=== PATIENT | male | born 1955 | race African-American/Black ===

== ENCOUNTER 2016-12-10 20:56 | Inpatient (IN) | payer OTHER ==
[~2016-12-10] VITALS: Ht 180.3 cm; Wt 104.7 kg
[~2016-12-10 20:56] MED LIST: AUGMENTIN875 MG PO; COUMADIN5 MG PO; LISINOPRIL20 MG PO
[2016-12-10] MEDS ORDERED: ASPIR 8181 M1 PO (22:00)
[2016-12-10] MEDS ORDERED: VITAMIN D3 PO (22:01)
[2016-12-10 22:04] LABS: HEMATOCRIT 40.2 % (38.0-50.0); MCH 28.8 PG (29.0-34.0); MCHC 34.3 G/DL (30.0-36.0); MCV 83.9 FL (86-99); MEAN PLAT.VOLUME 10.7 uM^3 (9.0-12.4); PLATELET COUNT 210 K/uL (156-360); RBC DIS.WIDTH-CV 12.8 % (11.8-14.6); RBC DIS.WIDTH-SD 39.5 % (39-53); RED BLOOD COUNT 4.79 M/uL (4.00-5.50); WHITE BLOOD COUNT 10.7 K/uL (4.1-10.2)
[2016-12-10 22:15] LABS: CHLORIDE 104 mEq/L (99-109); POTASSIUM 3.9 mEq/L (3.7-5.4); SODIUM 143 mEq/L (136-147)
[2016-12-10 22:16] LABS: GLUCOSE 108 mg/dL (70-99)
[2016-12-10 22:18] LABS: ANION GAP 15 MEQ/L (2-14)
[2016-12-10 22:20] LABS: GFR ESTIMATE (CALCULATED) > 59 mL/min/
[2016-12-10 22:21] LABS: UREA NITROGEN (BUN) 12 mg/dL (9-23)
[2016-12-10 22:27] LABS: TROP-I INTERPRETATION NEGATIVE; TROPONIN-I < 0.01 ng/mL (0.0-0.30)
[2016-12-10 22:59] LABS: ALKALINE PHOSPHATASE 65 IU/L (3-129)
[2016-12-10 23:01] LABS: DIRECT BILIRUBIN 0.4 mg/dL (0.0-0.3)
[2016-12-10 23:02] LABS: LIPASE 34 U/L (1.0-51.0)
[2016-12-11 03:09] LABS: INTER. NORMALIZED RATIO 1.4; PROTHROMBIN TIME 15.7 SEC (10.2-12.9)
[2016-12-11 05:19] VITALS: BP 164/86
[2016-12-11 06:59] LABS: HEMATOCRIT 35.3 % (38.0-50.0); MCH 28.1 PG (29.0-34.0); MCHC 33.7 G/DL (30.0-36.0); MCV 83.5 FL (86-99); MEAN PLAT.VOLUME 10.5 uM^3 (9.0-12.4); PLATELET COUNT 185 K/uL (156-360); RBC DIS.WIDTH-SD 39.4 % (39-53); RED BLOOD COUNT 4.23 M/uL (4.00-5.50); WHITE BLOOD COUNT 9.4 K/uL (4.1-10.2)
[2016-12-11 07:10] LABS: INTER. NORMALIZED RATIO 1.5; PROTHROMBIN TIME 16.3 SEC (10.2-12.9)
[2016-12-11 07:17] VITALS: BP 165/83
[2016-12-11 08:06] LABS: ALKALINE PHOSPHATASE 48 IU/L (3-129); ANION GAP 9 MEQ/L (2-14); CHLORIDE 106 MEQ/L (99-109); GFR ESTIMATE (CALCULATED) > 59 mL/min/; GLUCOSE 148 mg/dL (70-99); POTASSIUM 3.6 MEQ/L (3.7-5.4); SAMPLE HEMOLYSIS CHECK 0; SAMPLE ICTERIC CHECK 0; SAMPLE LIPEMIA CHECK 0; SODIUM 140 MEQ/L (136-147); TOTAL BILIRUBIN 0.9 MG/DL (0.0-1.0); UREA NITROGEN (BUN) 11 mg/dL (9-23)
[2016-12-11 11:03] VITALS: BP 164/89
[2016-12-11] MEDS ORDERED: VITAMIN D35000 UNIT PO ×2 (12:55)
[2016-12-11 15:16] VITALS: BP 164/71
[2016-12-11 19:46] VITALS: BP 165/95
[2016-12-11 23:52] VITALS: BP 144/65
[2016-12-12 03:55] VITALS: BP 136/66
[2016-12-12 05:57] LABS: HEMATOCRIT 35.7 % (38.0-50.0); MCH 28.6 PG (29.0-34.0); MCHC 34.2 G/DL (30.0-36.0); MCV 83.6 FL (86-99); MEAN PLAT.VOLUME 10.5 uM^3 (9.0-12.4); PLATELET COUNT 204 K/uL (156-360); RBC DIS.WIDTH-CV 12.9 % (11.8-14.6); RBC DIS.WIDTH-SD 39.1 % (39-53); RED BLOOD COUNT 4.27 M/uL (4.00-5.50); WHITE BLOOD COUNT 8.6 K/uL (4.1-10.2)
[2016-12-12 06:00] LABS: INTER. NORMALIZED RATIO 1.4; PROTHROMBIN TIME 15.3 SEC (10.2-12.9)
[2016-12-12 06:02] LABS: PTT 50.7 SEC (25-37)
[2016-12-12 07:11] VITALS: BP 153/71
[2016-12-12 11:13] VITALS: BP 170/71
[2016-12-12 15:06] VITALS: BP 164/74
[2016-12-12 20:46] VITALS: BP 159/89
[2016-12-13] VITALS (8 sets, daily range): BP systolic 145–177; BP diastolic 69–89
[2016-12-13 07:15] LABS: DRVVT 1:1 Mix Immediate NOT CORRECTED sec (CORRECTED); LUPA PHOSPHOLIPID NEUTRALIZ Positive (Negative)
[2016-12-13 09:13] LABS: INTER. NORMALIZED RATIO 1.4
[2016-12-13 09:16] LABS: PTT 60.2 SEC (25-37)
[2016-12-14 03:21] VITALS: BP 167/74
[2016-12-14 06:47] LABS: HEMATOCRIT 33.5 % (38.0-50.0); MCH 29.2 PG (29.0-34.0); MCHC 34.9 G/DL (30.0-36.0); MCV 83.5 FL (86-99); MEAN PLAT.VOLUME 10.4 uM^3 (9.0-12.4); PLATELET COUNT 214 K/uL (156-360); RBC DIS.WIDTH-CV 12.7 % (11.8-14.6); RBC DIS.WIDTH-SD 38.9 % (39-53); RED BLOOD COUNT 4.01 M/uL (4.00-5.50)
[2016-12-14 06:50] LABS: INTER. NORMALIZED RATIO 1.5; PROTHROMBIN TIME 16.9 SEC (10.2-12.9)
[2016-12-14 06:52] LABS: PTT 58.4 SEC (25-37)
[2016-12-14 08:12] VITALS: BP 164/82
[2016-12-14 11:46] VITALS: BP 137/73
[2016-12-14 15:37] VITALS: BP 139/78
[2016-12-14 19:28] VITALS: BP 133/71
[2016-12-14 23:53] VITALS: BP 151/74
[2016-12-15 06:45] LABS: INTER. NORMALIZED RATIO 2.1; PROTHROMBIN TIME 23.5 SEC (10.2-12.9)
[2016-12-15 06:48] LABS: PTT 56.5 SEC (25-37)
[2016-12-15 09:03] VITALS: BP 177/85
[2016-12-15 12:49] VITALS: BP 166/79
[2016-12-15 17:30] VITALS: BP 174/80
[2016-12-15 23:44] VITALS: BP 149/71
[2016-12-16 03:59] VITALS: BP 152/70
[2016-12-16 06:10] LABS: INTER. NORMALIZED RATIO 2.6; PROTHROMBIN TIME 29.9 SEC (10.2-12.9)
[2016-12-16 06:13] LABS: PTT 79.7 SEC (25-37)
[2016-12-16 09:05] VITALS: BP 153/78
[2016-12-16] MEDS ORDERED: COUMADIN7.5 MG PO (09:31)
[2016-12-17 08:21] LABS: THROMBIN TIME+ >100 sec (13-19)
[2016-12-17 13:32] LABS: ANTITHROMBIN III ACTIVITY+ 85 % activi (80-120); DRVVT Mixing Study Interp Positive (()); PROTEIN C FUNCTIONAL ACTIVITY+ 90 % (70-180); PTT-LA >200 sec (<=40); PTT-LA Reflex Has been added (()); Protein S, Free 87 % normal (57-171); Thrombosis Consult Level Limited (()); dRVVT Screen 59 sec (<=45)
== END 2016-12-16 13:56 | disposition home or self-care (01) | DRG 176 ==
LOC: EME 20:56 → 5SOUTH 12-11 03:16 → EDOF 12-11 03:16 → ENRESERV 12-11 03:19 → 5SOUTH 12-11 05:05
PROVIDERS: Hospitalist; Internal Medicine
DX: I26.99 Other pulmonary embolism without acute cor pulmonale (principal); I10 Essential (primary) hypertension; E66.9 Obesity, unspecified; Z68.32 Body mass index [BMI] 32.0-32.9, adult; Z86.718 Personal history of other venous thrombosis and embolism; Z79.01 Long term (current) use of anticoagulants; Z79.82 Long term (current) use of aspirin
CPT/HCPCS: 71020; 71275; 80048; 80053; 80076; 81240 90; 83090 90; 83690; 84484; 85027; 85240 90; 85300 90; 85303 90; 85305 90; 85306 90; 85307 90; 85379; 85610; 85613 90; 85670 90; 85730; 85730 90; 86146 90; 86147 90; 93005; 93970; 94640 76; 99281; 99285; J0360; J1885; J7030

== ENCOUNTER 2017-05-03 18:49 | Emergency (ER) | payer OTHER ==
[~2017-05-03] VITALS: Ht 180.3 cm; Wt 108.1 kg
[~2017-05-03 18:49] MED LIST changes: +ASPIR 8181 M1 PO; +COUMADIN7.5 MG PO; +VITAMIN D3 PO; +VITAMIN D35000 UNIT PO
[2017-05-03] MEDS ORDERED: KEFLEX500 MG PO (20:38)
[2017-05-03] MEDS ORDERED: PREDNISONE20 MG PO (20:39)
[2017-05-03] MEDS ORDERED: ATARAX,VISTARIL50 MG PO (20:39)
[2017-05-03] MEDS ORDERED: LISINOPRIL20 MG PO (21:08)
[2017-05-03 21:39] VITALS: BP 187/109
== END 2017-05-03 21:41 | disposition home or self-care (01) ==
LOC: EME 18:49
DX: L25.9 Unspecified contact dermatitis, unspecified cause (principal); L50.9 Urticaria, unspecified; S60.451A Superficial foreign body of left index finger, initial encounter; W45.8XXA Other foreign body or object entering through skin, initial encounter; I10 Essential (primary) hypertension; K21.9 Gastro-esophageal reflux disease without esophagitis; Z79.01 Long term (current) use of anticoagulants
CPT/HCPCS: 99281; 99284

== ENCOUNTER 2017-05-20 07:45 | Emergency (ER) | payer OTHER ==
[~2017-05-20] VITALS: Ht 180.3 cm; Wt 108.5 kg
[~2017-05-20 07:45] MED LIST changes: +ATARAX,VISTARIL50 MG PO; +KEFLEX500 MG PO; +PREDNISONE20 MG PO
[2017-05-20 08:46] LABS: BASOPHIL (%) 0.3 % (0-1); EOSINOPHIL (%) 1.4 % (0-5); EOSINOPHIL COUNT 0.1 K/uL (0-0.3); HEMATOCRIT 38.6 % (38.0-50.0); HEMOGLOBIN 13.3 G/DL (12.5-16.6); IMMATURE GRANULOCYTE (%) 0.5 % (0.0-0.7); LYMPHOCYTE (%) 15.9 % (15-42); MCH 28.4 PG (29.0-34.0); MCHC 34.5 G/DL (30.0-36.0); MCV 82.5 FL (86-99); MONOCYTE (%) 4.2 % (3-12); MONOCYTE COUNT 0.3 K/uL (0-0.8); NEUTROPHIL (%) 77.7 % (45-76); PLATELET COUNT 171 K/uL (156-360); RBC DIS.WIDTH-CV 14.1 % (11.8-14.6); RBC DIS.WIDTH-SD 41.9 % (39-53); RED BLOOD COUNT 4.68 M/uL (4.00-5.50); WHITE BLOOD COUNT 6.4 K/uL (4.1-10.2)
[2017-05-20 08:54] LABS: INTER. NORMALIZED RATIO 1.8
[2017-05-20 08:56] LABS: PTT 33.4 SEC (25-37)
[2017-05-20 08:57] LABS: CHLORIDE 108 mEq/L (99-109); POTASSIUM 4.1 mEq/L (3.7-5.4); SODIUM 141 mEq/L (136-147)
[2017-05-20 08:58] LABS: MAGNESIUM 2.2 mg/dL (1.3-2.7)
[2017-05-20 08:59] LABS: GLUCOSE 119 mg/dL (70-99)
[2017-05-20 09:02] LABS: CREATININE 1.1 mg/dL (0.6-1.3); GFR ESTIMATE (CALCULATED) > 59 mL/min/ (58.99-99999)
[2017-05-20 09:03] LABS: UREA NITROGEN (BUN) 13 mg/dL (9-23)
[2017-05-20 09:10] LABS: TROP-I INTERPRETATION NEGATIVE; TROPONIN-I < 0.01 ng/mL (0.0-0.30)
[2017-05-20 14:05] LABS: TROP-I INTERPRETATION NEGATIVE; TROPONIN-I < 0.01 ng/mL (0.0-0.30)
[2017-05-20 14:39] VITALS: BP 187/101
== END 2017-05-20 14:46 | disposition home or self-care (01) ==
LOC: EME 07:45
PROVIDERS: Emergency Medicine
DX: R07.9 Chest pain, unspecified (principal); I10 Essential (primary) hypertension; K21.9 Gastro-esophageal reflux disease without esophagitis; Z86.711 Personal history of pulmonary embolism
CPT/HCPCS: 71045; 71275; 80048; 83735; 84484; 85025; 85610; 85730; 93005; 99281; 99285